=== PATIENT | female | born 1975 | race Caucasian/White ===

== ENCOUNTER → 2019-02-23 | Outpatient (REF) | payer OTHER ==
[2019-02-26 15:17] LABS: HPV HYBRID CAPTURE II Negative (Negative)
== END ==
LOC: M LAB LCGH 11:53
PROVIDERS: ATTEND Family Medicine
DX: B37.3 Candidiasis of vulva and vagina (principal); Z12.4 Encounter for screening for malignant neoplasm of cervix
CPT/HCPCS: 87624; G0123

== ENCOUNTER → 2024-06-17 | Outpatient (CLI) | payer OTHER, SELFPAY | LOC: M WHC 13:13 | PROVIDERS: ATTEND Student in an Organized Health Care Education/Training Program | DX: Z12.31 Encounter for screening mammogram for malignant neoplasm of breast (principal) ==

== ENCOUNTER → 2024-07-14 | Outpatient (CLI) | payer OTHER | LOC: M WHC 10:34 | PROVIDERS: ATTEND Student in an Organized Health Care Education/Training Program | DX: N63.12 Unspecified lump in the right breast, upper inner quadrant (principal); R92.2 Inconclusive mammogram; N60.01 Solitary cyst of right breast | CPT/HCPCS: 76641; 77065; G0279 ==

== ENCOUNTER → 2025-09-06 | Outpatient (CLI) | payer OTHER ==
[~2025-09-06] MED LIST: IBUP200C35 PO; OXYB5TAB14 PO; TAMS1CAP17 PO
[2025-09-06 17:24] LABS: APPEARANCE, URINE CLEAR (CLEAR); BACTERIA, URINE AUTO NEGATIVE (NEGATIVE); BILIRUBIN, URINE AUTO NEGATIVE (NEGATIVE); BLOOD, URINE BLOOD 1+ (NEGATIVE); GLUCOSE, URINE (UA) AUTO NEGATIVE (NEGATIVE); KETONE, URINE AUTO NEGATIVE (NEGATIVE); LEUKOCYTE ESTERASE, URINE AUTO NEGATIVE (NEGATIVE); NITRITE, URINE AUTO NEGATIVE (NEGATIVE); PROTEIN, URINE AUTO NEGATIVE (NEGATIVE); RBC, URINE AUTO 17 /HPF (0-3); SPECIFIC GRAVITY URINE AUTO 1.010 (1.002-1.035); SQUAMOUS EPITHELIAL CELL UR AU 0 /HPF (0-6); UROBILINOGEN, URINE AUTO 0.2 mg/dL (0.0-2.0); WBC, URINE AUTO 2 /HPF (0-3)
[2025-09-06 17:27] LABS: PLATELET COUNT, AUTOMATED 272 10^3/uL (150-450)
[2025-09-06 17:46] LABS: CALCIUM LEVEL 9.3 MG/DL (8.5-10.1); CARBON DIOXIDE LEVEL 30 MMOL/L (20-31); CHLORIDE LEVEL 104 MMOL/L (98-107); CREATININE FOR GFR 0.70 MG/DL (0.55-1.30); GLOMERULAR FILTRATION RATE > 90.0 (>58); POTASSIUM SERUM 3.6 MMOL/L (3.5-5.1); SODIUM LEVEL 145 MMOL/L (136-145)
== END ==
LOC: M RAD 16:01
PROVIDERS: ATTEND Physician Assistant
DX: Z01.818 Encounter for other preprocedural examination (principal)

== ENCOUNTER 2025-09-13 09:51 | Day surgery (SDC) | payer OTHER ==
[~2025-09-13] VITALS: Ht 157.5 cm; Wt 72.3 kg
[~2025-09-13 09:51] MED LIST changes: -OXYB5TAB14 PO
[2025-09-13] MEDS ORDERED: dexAMETHasone 4 MG/ML 1 ML VIAL As Ordered ONE (11:06)
[2025-09-13] MEDS ORDERED: ONDANSETRON 4MG/2ML VIAL As Ordered ONE (11:06)
[2025-09-13] MEDS ORDERED: MIDAZOLAM INJ 2 MG/2 ML VIAL As Ordered ONE (11:06)
[2025-09-13] MEDS ORDERED: LIDOCAINE 2% 100 MG/5 ML SDV (FOR ANES.) As Ordered ONE (11:06)
[2025-09-13] MEDS: ceFAZolin SOD 2 GM IV ONCE IV ONE (11:39)
[2025-09-13] MEDS ORDERED: OXYB5TAB14 PO (11:43)
[2025-09-13] MEDS ORDERED: ACETAMINOPHEN 1000MG/100ML IV BAG As Ordered ONE (11:51)
[2025-09-13] MEDS ORDERED: KETOROLAC 30 MG/ML 1 ML VIAL As Ordered ONE (12:06)
[2025-09-13] MEDS: ISOVUE-300 61% 100 ML VIAL As Ordered ONE (12:15)
[2025-09-13] MEDS ORDERED: LR 1,000 ML IV SCH (12:25)
[2025-09-13] MEDS ORDERED: ONDANSETRON 4MG/2ML VIAL IV PRN (12:25)
[2025-09-13] MEDS ORDERED: HYDROMORPHONE HCL 0.5 MG/0.5 ML SYRINGE IV PRN (12:25)
[2025-09-13 13:10] VITALS: BP 127/66; TEMP 97.8; O2SAT 100
[2025-09-13] MEDS ORDERED: PERCOCET 5MG/325MG TAB PO PRN (17:30)
== END 2025-09-13 13:27 | disposition home or self-care (01) ==
LOC: M SDC 09:51
PROVIDERS: ATTEND Urology
DX: N13.2 Hydronephrosis with renal and ureteral calculous obstruction (principal); Z79.899 Other long term (current) drug therapy; Z88.0 Allergy status to penicillin; Z88.6 Allergy status to analgesic agent; Z90.49 Acquired absence of other specified parts of digestive tract; Z97.5 Presence of (intrauterine) contraceptive device
CPT/HCPCS: 52356; 74420; 81025; 82365; C1769; C1894; C2617; J0131; J0688; J1100; J2250; J2405; J3010; Q9967